=== PATIENT | female | born 1965 | race African-American/Black ===

== ENCOUNTER 2017-04-12 23:08 | Emergency (ER) | payer MEDICAID ==
[~2017-04-12] VITALS: Ht 157.5 cm; Wt 54.5 kg
[2017-04-13 00:14] LABS: BASOPHILS % 0.5 % (0.0-2.0); EOSINOPHILS % 0.7 % (0.0-5.0); HEMATOCRIT. 38.2 % (36.0-48.0); HEMOGLOBIN. 13.3 g/dL (12.0-16.0); MEAN CORPUSCULAR HEMOGLOBIN 29.9 pg (28.0-32.0); MEAN PLATELET VOLUME 7.7 fl (7.4-10.4); MONOCYTES % 6.3 % (2.0-8.0); NEUTROPHILS % 65.5 % (40.0-76.0); PLATELET 242 x1000/uL (130-400); RED BLOOD CELL COUNT 4.44 mill/uL (4.2-5.4); RED CELL DISTRIBUTION WIDTH 15.6 % (11.6-14.6)
[2017-04-13 00:27] LABS: CARBON DIOXIDE 26 mEq/L (21-32); CHLORIDE 99 mEq/L (98-107); PHENYTOIN 0.6 ug/mL (10-20); TROPONIN I < 0.02 ng/mL (0.00-0.04)
[2017-04-13 00:29] LABS: CREATINE KINASE MB FRACTION 0.7 ng/mL (0.5-3.6)
[2017-04-13 00:32] LABS: CARBAMAZEPINE < 0.5 ug/mL (4-12); PHENOBARBITAL < 2.1 ug/mL (15.0-40.0)
[2017-04-13 00:41] LABS: PARTIAL THROMBOPLASTIN TIME 23.2 sec (24.0-34.0); PROTHROMBIN TIME 10.1 sec
[2017-04-13] MEDS ORDERED: POTASSIUM CHLORIDE 20MEQ TABLET SR PO ONE (05:15)
[2017-04-13 06:25] VITALS: BP 143/99
== END 2017-04-13 06:25 | disposition home or self-care (01) ==
LOC: ER 23:08
DX: F10.188 Alcohol abuse with other alcohol-induced disorder (principal); G40.909 Epilepsy, unspecified, not intractable, without status epilepticus; Y90.9 Presence of alcohol in blood, level not specified; R55 Syncope and collapse; I10 Essential (primary) hypertension; F17.210 Nicotine dependence, cigarettes, uncomplicated
CPT/HCPCS: 36415; 70450; 71010; 80053; 80156; 80165; 80184; 80185; 82553; 84484; 85025; 85610; 85730; 93005; 99285; Z7610